=== PATIENT | female | born 1955 | race Caucasian/White ===

== ENCOUNTER → 2017-08-08 | Outpatient (CLI) | payer OTHER ==
[~2017-08-08] MED LIST: ALBU2.5V5 INH; ALBU90OI; ALBU90OI INH; AMIL5; AMIL5 PO; ASCO500 PO; ASPI81CH PO; ASTHMACORT; ATOR40TA PO; CALGLU500; CALMAGZIN PO; CHOL10002 PO; CLAR500 PO; CYCL10 PO; Cefpodoxime Pr200 MG PO; DIVA500ER PO; ERGO400 PO; ESCI10 PO; ESTROGEN/PROGESTERON; Estradiol1 MG PO; FORM12IH INH; GUAI600T33 PO; LITH300C; Lomotil Tablet1 EACH PO; MAG6464 MG PO; MAGOXI400 PO; MIDO2.5; MIDO5 PO; Mucinex600 MG PO; Nicoderm Cq1 EACH TOP; Nicotine Patch1 EAC4 TOP; PRED10 PO; PRED20 PO; PROG100; PROG100 PO; Percocet 5-3251 EACH PO; Perforomis20 MCG/2 M INH; Prednisone10 MG PO; Pulmicort Fle180 MCG INH; QC CALCIUM 6001 EAC1 PO; SALM50IP INH; THEO100ERB; TIOT18 INH; TOCO400 PO; TRIAOI; Thera-M1 EACH PO; Ventolin/Prove6.7 GM INH; [UNRECOGNIZED DRUG - REMARK]; [UNRECOGNIZED DRUG - REMARK]
== END | disposition home or self-care (01) ==
LOC: LAB 15:12
DX: J44.1 Chronic obstructive pulmonary disease with (acute) exacerbation (principal)
CPT/HCPCS: 87070; 87205

== ENCOUNTER 2018-05-18 09:07 | Day surgery (SDC) | payer OTHER ==
[~2018-05-18] VITALS: Ht 157.5 cm; Wt 56.4 kg
[~2018-05-18 09:07] MED LIST changes: -ALBU2.5V5 INH; +ALBU2.5V5 NEB; -ASPI81CH PO; +ASPI81EC PO; -ATOR40TA PO; +BUDE200IP INH; +CHOL10002; -CHOL10002 PO; -Cefpodoxime Pr200 MG PO; -Lomotil Tablet1 EACH PO; +MULVITMIND PO; -Mucinex600 MG PO; -Nicoderm Cq1 EACH TOP; -Perforomis20 MCG/2 M INH; -Pulmicort Fle180 MCG INH; -Thera-M1 EACH PO
== END 2018-05-18 11:25 | disposition home or self-care (01) ==
LOC: ORSCSDS 09:07
PROVIDERS: Surgery
PROC: 0DJD8ZZ Inspection of Lower Intestinal Tract, Via Natural or Artificial Opening Endoscopic (ICD-10-PCS; principal; 2018-05-18 10:30)
DX: Z12.11 Encounter for screening for malignant neoplasm of colon (principal); Z86.010 Personal history of colon polyps; K57.30 Diverticulosis of large intestine without perforation or abscess without bleeding; J44.9 Chronic obstructive pulmonary disease, unspecified; F17.210 Nicotine dependence, cigarettes, uncomplicated; Z79.82 Long term (current) use of aspirin; Z79.899 Other long term (current) drug therapy
CPT/HCPCS: J7120

== ENCOUNTER 2018-11-28 01:57 | Inpatient (IN) | payer OTHER ==
[~2018-11-28] VITALS: Ht 157.5 cm; Wt 61.3 kg
[~2018-11-28 01:57] MED LIST changes: +ALBU2.5V5 INH; -ALBU2.5V5 NEB; -AMIL5 PO; +ASPI81CH PO; -ASPI81EC PO; -BUDE200IP INH; -CHOL10002; +CHOL10002 PO; -MULVITMIND PO; +Pulmicort Fle180 MCG INH; +Thera-M1 EACH PO
[2018-11-28 02:42] LABS: BASOPHILS ABSOLUTE AUTO 0.05 K/mm3 (0.00-0.23); BASOPHILS PERCENT AUTO 1 % (0-2); Hematocrit 42.3 % (33.0-51.0); Hemoglobin 13.8 g/dL (11.5-16.0); LYMPHOCYTES ABSOLUTE AUTO 1.25 K/mm3 (0.84-5.20); LYMPHOCYTES PERCENT AUTO 12 % (21-46); MONOCYTES PERCENT AUTO 14 % (4-13); Mean Corpuscular HGB Conc 32.6 g/dL (31.5-36.5); Mean Corpuscular Volume 98 fL (80-100); Mean Platelet Volume 10.4 fL (9.1-12.4); Platelet Count 218 K/mm3 (150-400); RDW Coefficient Variation 12.2 % (11.7-14.2); RDW Standard Deviation 44.8 fL (35.1-46.3); Red Blood Cell Count 4.31 M/mm3 (3.80-5.20); White Blood Cell Count 10.69 K/mm3 (4.00-11.30)
[2018-11-28 02:43] LABS: EOSINOPHILS PERCENT AUTO 0 % (0-6); IMMATURE GRAN ABSOLUTE AUTO 0.16 K/mm3 (0.00-0.10); IMMATURE GRAN PERCENT AUTO 2 % (0-1); NEUTROPHILS ABSOLUTE AUTO 7.73 K/mm3 (1.96-9.15); NEUTROPHILS PERCENT AUTO 72 % (41-73)
[2018-11-28 03:02] LABS: Albumin/Globulin Ratio 0.6 (0.8-1.8); Bilirubin, Total 0.2 mg/dL (0.1-1.0); Bun/Creatinine Ratio 27.6 (12.0-20.0); Calcium, Blood 9.1 mg/dL (8.5-10.1); Creatinine, Blood 1.34 mg/dL (0.40-1.00); Potassium, Blood 4.6 mmol/L (3.5-5.5); Troponin I 0.219 ng/mL (0.000-0.040)
[2018-11-28 04:17] LABS: Influenza A Negative (NEGATIVE); Influenza B Negative (NEGATIVE)
[2018-11-28] MEDS ORDERED: Perforomis20 MCG/2 M INH (07:15)
[2018-11-28] MEDS ORDERED: Mucinex600 MG PO (07:17)
[2018-11-28] MEDS ORDERED: Lomotil Tablet1 EACH PO (07:20)
--- NOTE | 2018-11-28 07:33 | NUR ---
0610 ADMIT: PT ARRIVES TO ROOM 211 VIA GOURNEY FROM ER ACCOMPANIED BY SON AND TRANSFERS SELF TO BED; PT APPEARS UNSTEADY ON FEET. SOB AT REST ON 3-4L O2 VIA NC TO MAINTAIN SPO2 >90%, PT HAS COARSE UPPER LOBES AND CONGESTED NON-PRODUCTIVE COUGH. PT CHANGED TO PT GOWN AND 1 PERSON ASSISTED TO BSC AND ATTENDS CHANGED FOR STRESS INCONTINENCE. PT A&O AND ABLE TO VERBALIZE MEDICAL HISTORY. RN MAKES COPY OF PT'S MED LIST AND PT STATES SHE TOOK ALL MEDS ON TUESDAY. PT ORIENTED TO BED, BRP, SAFETY AND CALL SYSTEM.
--- NOTE | 2018-11-28 20:15 | NUR ---
SHIFT SUMMARY PT VERY ANXIOUS AND FORGETFUL T/O SHIFT. PT'S COUGH CONTINUED TO BE PRODUCTIVE. INCREASE IN PROD SPUTUM THIS AFTERNOON. LUNG SOUNDS HAVE BECOME MORE COURSE THIS AFTERNOON CHEST CONGESTION APPEARS TO BE WORSE. TACHYCARDIA NOTED T/O HOSPITAL STAY. NEW MED TO START TONIGHT. PT CALLS APPROP TO USE BSC, URINE NOTED TO HAVE FOUL SMELL. INCONTINENT OF URINE. GOOD PO INTAKE OF FLUIDS T/O SHIFT, BUT NOT MUCH APPETITE FOR FOOD SHE IS HAVING INCREASE RESP RATE AND WORK OF BREATHING.
--- NOTE | 2018-11-28 20:50 | NUR ---
2049: NEW ORDERS FOR COPD AND CPT PYSIOTHERAPY PER PROTOCOLS AT RT REQUEST. PT RESPIRATORY RATE 26 WITH EFFORT INCREASED; SITS WITH HOB ELEVATED, PURSED LIPS BREATHING, COARSE T/O. RT TO COMPLETE TREATMENTS.
--- NOTE | 2018-11-29 00:28 | NUR ---
0028: PT UP TO BSC WITH MODERATE ASSIST. PT'S HEAVILY SOILED UNDERWARE FROM HOME REMOVED AND THROWN AWAY. PERICARE WITH HOT, SOAPY WASHCLOTHS COMPLETED AND NEW ATTENDS APPLIED. URINE APPEARS CLOUDY, DARK YELLOW AND FOUL IN ODOR. PT STATES SHE HAS CKD AND IS FOLLOWED BY DR. GLASGOW AND FREQUENTLY VOIDS SMALL AMOUNTS. PT ENCOURAGED TO COUGH DEEPLY AND CLEAR SECRETIONS FROM THROAT.
--- NOTE | 2018-11-29 02:24 | NUR ---
0224: PT CONTINUES TO CALL EVERY 30 MINUTES OR SOONER FOR BEDSIDE COMMODE USE. RN PLACES BEDSIDE COMMODE NEXT TO BED AND PT DEMONSTRATES SAFE, STEADY SELF TRANSFER TO BSC AND BACK. PT VERBALIZES UNDERSTANDING THAT SHE MAY TRANSFER SELF TO BSC WITHOUT STAFF SBA. RN REINFORCES CARE ROUNDING EXPECTATIONS AND APPROPRIATE CALL LIGHT USE WITH PT.
[2018-11-29 04:29] LABS: BASOPHILS ABSOLUTE AUTO 0.06 K/mm3 (0.00-0.23); BASOPHILS PERCENT AUTO 0 % (0-2); EOSINOPHILS PERCENT AUTO 0 % (0-6); Hematocrit 41.3 % (33.0-51.0); Hemoglobin 13.5 g/dL (11.5-16.0); IMMATURE GRAN PERCENT AUTO 1 % (0-1); LYMPHOCYTES ABSOLUTE AUTO 1.34 K/mm3 (0.84-5.20); LYMPHOCYTES PERCENT AUTO 9 % (21-46); MONOCYTES ABSOLUTE AUTO 1.56 K/mm3 (0.16-1.47); MONOCYTES PERCENT AUTO 10 % (4-13); Mean Corpuscular HGB 31.8 pg (26.0-34.0); Mean Corpuscular HGB Conc 32.7 g/dL (31.5-36.5); Mean Corpuscular Volume 97 fL (80-100); Mean Platelet Volume 10.7 fL (9.1-12.4); NEUTROPHILS ABSOLUTE AUTO 12.45 K/mm3 (1.96-9.15); NEUTROPHILS PERCENT AUTO 80 % (41-73); NRBC ABSOLUTE 0.04 K/mm3 (0.00-0.02); NRBC Auto 0.3 /100 WBC (0.0-0.2); Platelet Count 258 K/mm3 (150-400); RDW Coefficient Variation 11.9 % (11.7-14.2); RDW Standard Deviation 42.8 fL (35.1-46.3); Red Blood Cell Count 4.24 M/mm3 (3.80-5.20); White Blood Cell Count 15.61 K/mm3 (4.00-11.30)
[2018-11-29 04:37] LABS: Base Excess Venous 0.4 mmol/L; Bicarbonate Venous 23.1 mmol/L (24.0-30.0); PCO2 Venous 67.5 mmHg (38-42); pH Blood Venous 7.23 (7.34-7.37)
--- NOTE | 2018-11-29 04:47 | NUR ---
RN NOTIFIED.STATED SHE WILLL TAKE OVER TOTAL CARE FOR PATIENT.
[2018-11-29 04:53] LABS: Troponin I 0.495 ng/mL (0.000-0.040)
[2018-11-29 04:57] LABS: Bun/Creatinine Ratio 34.3 (12.0-20.0); Calcium, Blood 9.4 mg/dL (8.5-10.1); Creatinine, Blood 1.37 mg/dL (0.40-1.00); Potassium, Blood 5.1 mmol/L (3.5-5.5)
--- NOTE | 2018-11-29 07:00 | NUR ---
REPORT FROM SUMMER RN. ASSUMED PT CARE.
--- NOTE | 2018-11-29 07:20 | NUR ---
PT APPEARS TO BE SLEEPING. PT RESP RATE APPROX 30. LUNG SOUNDS COARSE.
--- NOTE | 2018-11-29 07:59 | NUR ---
PT AWAKE, ALERT TO SELF. SEEMS CONFUSED TO SURROUNDINGS. PT SPEAKS IN SINGLE WORD SPURTS, LUNG SOUNDS DIMINISHED TO BASES AND COARSE/WET TO UPPER. RESP STAFF TO ROOM FOR CPT AND NEB TX. PT ON 4L O2 PER NC HUMIDIFIED. BSC AT BEDSIDE. BREAKFAST TRAY HELD AT THIS TIME. ASSESSMENT CHARTED.
--- NOTE | 2018-11-29 08:14 | NUR ---
THIS RN SPOKE WITH DR RIDLEY RE CONCERNS FOR PT STATUS. PROVIDER PLANS TO ROUND ON PT PRESENTLY.
--- NOTE | 2018-11-29 08:45 | NUR ---
DR RIDLEY TO ROOM, PLAN FOR STAT EKG, STAT PORTABLE CHEST XRAY, & ADDITIONAL LABS. RESULTS TO BE CALLED TO PROVIDER.
--- NOTE | 2018-11-29 08:55 | NUR ---
ATTEMPT X1 FOR IV ACCESS, UNSUCCESSFUL. RESP STAFF AT BEDSIDE FOR ABG.
[2018-11-29 09:04] LABS: PCO2 Arterial 56.1 mmHg (35-45)
[2018-11-29 09:05] LABS: pH Blood Arterial 7.25 (7.35-7.45)
--- NOTE | 2018-11-29 09:20 | NUR ---
ADDITIONAL ATTEMPTS AT 2ND IV ACCESS, UNSUCCESSFUL. BLOOD OBTAINED AND SENT TO LAB. PT CONFUSED. PUSHING BUTTONS ON PHONE AND REMOTE. REORIENTED MULT TIMES. EXPLAINED TO PT THAT CALLS ARE ON HOLD AT THIS TIME SO PT CAN BREATHE EASIER. AUDIBLE COARSE LUNG SOUNDS. PT CONT SINGLE WORD SENTENCES.
--- NOTE | 2018-11-29 10:00 | NUR ---
PT NEEDEEING TO VOID, TRIES EXCITING BED MULT TIMES. ASSISTED PT TO BSC AND PT VERY WEAK, PT UNABLE TO STAND ON HER OWN, PT BALANCE ALTERED AND SHE LISTS BACKWARDS. ASSISTED BACK TO BED. TOTAL ASSIST.
[2018-11-29 10:05] LABS: Bun/Creatinine Ratio 39.4 (12.0-20.0); Calcium, Blood 9.2 mg/dL (8.5-10.1); Creatinine, Blood 1.27 mg/dL (0.40-1.00)
--- NOTE | 2018-11-29 10:10 | NUR ---
PT MEDICATED WITH LOVENOX AND DEPAKOTE PER EMAR ORDERS. OTHER MEDS HELD DUE TO PT RESP RATE AND SIGNIFICANT SOB. 16FR TOL[place]O PLACED, CLEAR YELLOW URINE RETURNED. SPECIMEN SENT TO LAB. PT CONT TO BE ONE ON ONE.
[2018-11-29 10:21] LABS: Source, Urine Catheter
[2018-11-29 10:40] LABS: Appearance, Urine Clear (Clear); Bilirubin, Urine Neg (Neg); Blood, Urine 1+ (Neg); Color, Urine Yellow (P-Yellow); Glucose Qualitative, Urine Neg (Neg); Ketones, Urine Neg (Neg); Leukocyte Esterase, Urine Neg (Neg); Nitrite, Urine Neg (Neg); Protein, Urine 1+ (Neg); Urobilinogen, Urine NORM (Normal)
--- NOTE | 2018-11-29 10:40 | NUR ---
LAB TO ROOM FOR BLOOD CULTURE DRAW AND ADDITIONAL LABS. PT ANXIOUS, CONT TO ATTEMPT GETTING OUT OF BED DESPITE REORIENTATION AND DIRECTION.
[2018-11-29 10:44] LABS: Amorphous Light (0-Heavy); Bacteria Not Seen /hpf; Red Blood Cells, Urine Rare /hpf (0-2); Squamous Epithelial Cells Not Seen /hpf (Few); White Blood Cells, Urine Not Seen /hpf (0-5)
--- NOTE | 2018-11-29 10:48 | NUR ---
RESP STAFF TO ROOM FOR CPT AND NEB. PT TRIES TO PULL OFF OXYMIZER, PULLING AT TOLEDO.
--- NOTE | 2018-11-29 11:06 | NUR ---
PT MEDICATED WITH .25MG ATIVAN IV, IVF STARTED PER ORDERS. PUPILS 4MM BILATERALLY AND BOTH REACTIVE.
--- NOTE | 2018-11-29 11:08 | NUR ---
PT MORE RESTFUL, O2 DOWN TO 5L PER OXYMIZER. HR 102, SAT 95%
--- NOTE | 2018-11-29 11:15 | NUR ---
REPORT TO PHYSIOTHERAPY PRACTICE MANAGER.
--- NOTE | 2018-11-29 11:20 | NUR ---
PT TO ICU 4.
[2018-11-29 11:26] LABS: International Normalized Ratio 0.93; Prothrombin Time Results 9.9 Sec (9.7-11.5)
--- NOTE | 2018-11-29 11:35 | NUR ---
SPOUSE UPDATED ON PT TX TO ICU.
--- NOTE | 2018-11-29 11:41 | NUR ---
FEMALE PAT ARRIVED IN BED FRON 211. JUST HAD SOME ATIVAN AND VERY RELAXED. ON 5L NC AND THIS WAS CHANGED TO BIPAP 14/6 35%. YOVANY A LITTLE BIT WE WERE APPLYING THE BPAP. LUNGS COURSE AND WET SOUNDING. DR GARCIA HERE AND CONSULT REQUESTED.
[2018-11-29 14:09] LABS: PCO2 Arterial 67.6 mmHg (35-45); PO2 Arterial 130 mmHg (80-100); pH Blood Arterial 7.18 (7.35-7.45)
--- NOTE | 2018-11-29 14:45 | NUR ---
Mrs. Maza is alone in room, on vent, and unresponsive. She appears critically ill. Per admit trigger, I provided prayer at bedside. I will remain available to pt and family.
[2018-11-29 15:42] LABS: Uric Acid, Blood 7.9 mg/dL (2.6-6.0)
[2018-11-29 16:06] LABS: Albumin, Blood 2.1 g/dL (3.4-5.0); Anion Gap 8 mmol/L (6-16); Blood Urea Nitrogen 47 mg/dL (8-24); CO2, Blood 24 mmol/L (21-32); Calcium, Blood 8.4 mg/dL (8.5-10.1); Chloride, Blood 86 mmol/L (98-108); Creatinine, Blood 1.27 mg/dL (0.40-1.00); Glomerular Filtration Rate 45 (60-); Glucose, Blood 101 mg/dL (70-99); Phosphorus, Blood 3.1 mg/dL (2.5-4.9); Potassium, Blood 5.1 mmol/L (3.5-5.5); Sodium, Blood 118 mmol/L (136-145)
[2018-11-29 16:11] LABS: Base Excess Venous -0.2 mmol/L; Bicarbonate Venous 23.7 mmol/L (24.0-30.0); PCO2 Venous 47.4 mmHg (38-42); PO2 Venous 50.2 mmHg (38-42); pH Blood Venous 7.34 (7.34-7.37)
[2018-11-29 16:34] LABS: Osmolality, Serum 265 mos/KG (275-300)
--- NOTE | 2018-11-29 16:36 | NUR ---
PICC LINE INSERTED EARLIER BY Adriana CURRIE RN. LEVOPHED STARTED AT 5MCG/ MIN AND PROPOFOL SLOWLY INCRESED THE BP BECOMES MORE STABLE. CALLED A CONSULT TO DR GLASGOW WHO IS REVIEWING THE LABS. VANCOMYCIN IVPB STARTED. SECRETIONS FROM THE ET ARE LARGE AMTS, THICK AND DARK YELLOW. SPEC WAS SENT TO THE LAB. DR GLASGOW CAME IN TO SEE PAT.AFTER HE LEFT THE [facility] AND SONS ARRIVED. HAD DIFFICULTY SEEING HIS LIKE THIS. PALLIATIVE CARE Paco RASHEED WENT TO TALK WITH HIM IN THE FAMILY LOUNGE.
--- NOTE | 2018-11-29 16:45 | NUR ---
DR GLASGOW CALLED WITH LAB RESULS AND MALINDA SOLIS OBTAINED.
[2018-11-29 17:24] LABS: Influenza A Negative (NEGATIVE); Influenza B Negative (NEGATIVE)
--- NOTE | 2018-11-29 17:38 | NUR ---
pt on vent family at bedside. they had many questions about her care and prognosis. review of ventilator care and medications. family states she wants full treatment. They rpresent history of decline over the past few months. house is not clean and she spends most of her time in bed.
--- NOTE | 2018-11-29 18:29 | NUR ---
PATIENT FINALLY RELAXED AND NOT FIGHTING THE RESTRAINTS. LEVOPHED DRIP AT 7MICS/ MIN, PROPOFOL AT 35MICS/KG/MIN. 3% SALINE AT 30ML/HOUR. SON AT BEDSIDE AND PLANS TO STAY THE NIGHT. LUNGS LESS CORSE. ON VENT TO ORAL E. TV 400, PEEP 5, AC 14, AND FIO2 AT35%. FREQ MOUTH CARE DONE.
--- NOTE | 2018-11-29 20:00 | NUR ---
ASSUMED CARE OF PT AT 1915. REPORT RECEIVED. ALL CRITICAL DRIPS CONFIRMED. PT PRESENTS IN BED. VENTED. SETTINGS CHECKED AND VERIFIED. PT'S FAMILY (SON) IN ROOM. PT ON LEVOPHED DRIP AT 5 MCG'S. PROPOFOL AT 35 MCG'S AND 3 PERCENT SALINE AT 30 ML/HOUR. NA LAB DRAW DONE FROM PICC AND SENT TO LAB FOR PROCESSING. WILL CALL DR GLASGOW WITH RESULTS. WILL REVIEW CHART AND PLAN OF CARE FOR THIS PT.
--- NOTE | 2018-11-30 | NUR ---
PT HAS TOLERATED Q 2 HOUR TURNS IN BED. HAVE SUCTIONED PT WITH RETURN OF YELLOW SECRETIONS. HAVE NEEDED TO INCREASE LEVOPHED FROM 5MCG'S TO 6MCG'S. WILL CONTINUE TO MONITOR FOR ABILITY TO TITRATE DOWN DRIP. PROPOFOL AT 40 MCG'S IS ADEQUATE TO MAINTAIN SAS 4. WILL CONTINUE TO MONITOR.
[2018-11-30 04:24] LABS: BASOPHILS ABSOLUTE AUTO 0.03 K/mm3 (0.00-0.23); BASOPHILS PERCENT AUTO 0 % (0-2); EOSINOPHILS PERCENT AUTO 0 % (0-6); Hematocrit 35.1 % (33.0-51.0); IMMATURE GRAN ABSOLUTE AUTO 0.31 K/mm3 (0.00-0.10); IMMATURE GRAN PERCENT AUTO 2 % (0-1); LYMPHOCYTES ABSOLUTE AUTO 0.53 K/mm3 (0.84-5.20); LYMPHOCYTES PERCENT AUTO 4 % (21-46); MONOCYTES ABSOLUTE AUTO 0.71 K/mm3 (0.16-1.47); MONOCYTES PERCENT AUTO 5 % (4-13); Mean Corpuscular HGB 31.7 pg (26.0-34.0); Mean Corpuscular HGB Conc 34.2 g/dL (31.5-36.5); Mean Platelet Volume 10.5 fL (9.1-12.4); NEUTROPHILS ABSOLUTE AUTO 11.95 K/mm3 (1.96-9.15); NEUTROPHILS PERCENT AUTO 88 % (41-73); Platelet Count 221 K/mm3 (150-400); RDW Coefficient Variation 11.9 % (11.7-14.2); Red Blood Cell Count 3.79 M/mm3 (3.80-5.20); White Blood Cell Count 13.53 K/mm3 (4.00-11.30)
[2018-11-30 04:30] LABS: Mean Corpuscular Volume 93 fL (80-100)
[2018-11-30 04:43] LABS: International Normalized Ratio 0.97; Prothrombin Time Results 10.3 Sec (9.7-11.5)
[2018-11-30 04:50] LABS: Alanine Aminotransfer (ALT/SGP 28 U/L (12-78); Albumin, Blood 2.1 g/dL (3.4-5.0); Albumin/Globulin Ratio 0.5 (0.8-1.8); Alk Phos 50 U/L (50-136); Anion Gap 8 mmol/L (6-16); Aspartate Aminotrans (AST/SGOT 36 U/L (12-37); Bilirubin, Total 0.3 mg/dL (0.1-1.0); Blood Urea Nitrogen 42 mg/dL (8-24); Bun/Creatinine Ratio 31.3 (12.0-20.0); CO2, Blood 25 mmol/L (21-32); Calcium, Blood 9.1 mg/dL (8.5-10.1); Chloride, Blood 99 mmol/L (98-108); Creatinine, Blood 1.34 mg/dL (0.40-1.00); Glomerular Filtration Rate 43 (60-); Glucose, Blood 111 mg/dL (70-99); Magnesium, Blood 2.5 mg/dL (1.6-2.4); Phosphorus, Blood 2.1 mg/dL (2.5-4.9); Sodium, Blood 132 mmol/L (136-145); Total Protein, Blood 6.1 g/dL (6.4-8.2)
[2018-11-30 04:53] LABS: Troponin I 0.338 ng/mL (0.000-0.040)
--- NOTE | 2018-11-30 05:24 | NUR ---
PT GIVEN SEDATION VACATION THIS AM. DOES BECOME VERY ANXIOUS DURING THIS TIME. FLUFFS HER GOWN, AND WHEN ASKED IF SHE WAS TOO WARM SHE NODS HEAD 'YES'. PT ABLE TO FOLLOW COMMANDS AT THIS TIME. PT CURRENTLY BACK TO SEDATION AT 40 MCG/KG. LEVOPHED AT 6 MCG'S. PT'S BLOOD PRESSURE REMAINS >60. HAVE ATTEMPTED TO WEAN DOWN LEVOPHED AND THIS WAS UNSUCCESSFUL. FIO2 HAS BEEN LOWERED TO 30 PERCENT. PT MAINTAINS > 90 PERCENT. SUCTIONING OF PT'S ETT RETURNS YELLOW SECRETIONS. PT TOLERATES THIS FAIR. HAS HAD OUT > 2500 ML CLEAR/YELLOW URINE. PLACED FAN ON BED FOR PT COMFORT. LABS DRAWN THIS AM WITH RETURNED VALUES RECEIVED. WILL CALL DR GLASGOW WITH UPDATES ON LABS. WILL CONTINUE TO MONITOR PT, AND WILL REPORT OFF TO ONCOMING RN.
[2018-11-30 05:37] LABS: PCO2 Arterial 38.7 mmHg (35-45); PO2 Arterial 61.9 mmHg (80-100); pH Blood Arterial 7.45 (7.35-7.45)
--- NOTE | 2018-11-30 07:00 | NUR ---
REC'D BEDSIDE REPORT FROM ROBERT DASILVA AND AM NOW ASSUMING CARE OF PT. PT REMAINS SEDATED ON TITRATED PROPOFOL CURRENTLY AT 40MCG/KG/MIN. PT IS LIGHTLY SEDATED AND IS ABLE TO OPEN EYES AND FOLLOW SOME SIMPLE COMMANDS. PT GRIMACES WITH ORAL/ETT SX'ING. NO S/SX OF PAIN WHEN PT IS AT REST AND CARE ISN'T BEING PROVIDED. LUNGS ARE CLEAR BUT DIMINISHED IN THE BILATERAL BASES. VENT SETTINGS: AC-16/400/5/30%, WITH SATS >90%. OCCASIONAL COUGH WITH SCANT AMT OF THICK WHITISH/YELLOW SPUTUM PER ETT. HR IRREGULAR, SR WITH FREQUENT PAC'S, 80-90'S RANGE. SCD'S IN PLACE BILATERALLY TO LE'S. PICC IN RT UA WITH TITRATED LEVOPHED AT 6MCG/MIN TO MAINTAIN MAP >65. D5W @ 100ML/HR. TOL[place]O CATH DRAINING CLEAR YELLOW URINE. NO BM AT HOME.
--- NOTE | 2018-11-30 08:13 | NUR ---
CHECKED FOR NA LEVEL, NO RESULTS YET. WILL CALL DR GLASGOW WITH RESULTS WHEN AVAILABLE.
[2018-11-30 12:42] LABS: Vancomycin, Trough 8.2 ug/mL (5.0-10.0)
--- NOTE | 2018-11-30 17:06 | NUR ---
PT SWITCHED BACK TO AC MODE RESPIRATORY RATE IS STARTING TO INCREASE THE LONGER SHE HAS BEEN ON SPONTANEOUS.
--- NOTE | 2018-11-30 17:32 | NUR ---
CALLED SODIUM RESULTS TO DR GLASGOW, SEE NEW ORDERS.
--- NOTE | 2018-11-30 19:08 | NUR ---
REPORTED OFF TO ROBERT DASILVA WHOM WILL BE ASSUMING CARE OF PT.
--- NOTE | 2018-11-30 20:00 | NUR ---
ASSUMED CARE OF PT AT 1915. REPORT RECEIVED. PT PRESENTS IN BED. VENTED - SETTINGS CHECKED AND VERIFIED. PT CONTINUES ON PROPOFOL AT 50 MCG'S. LEVOPHED AT 6 MCG'S. PT'S NEICE IN ROOM. WILL REVIEW CHART AND PLAN OF CARE FOR THIS PT.
--- NOTE | 2018-11-30 23:00 | NUR ---
RESIDUAL FROM OGT 150-165. VOLUMES REINSTILLED. PT CONTINUES ON PROPOFOL AND LEVOPHED AT PREVIOUSLY DOCUMENTED RATES. FAMILY HAS LEFT FOR THE NIGHT. PT'S CALLS DURING EVENING TO CHECK ON PT. VERBAL CONSENT GIVEN FOR RELEASE OF INFORMATION AND BLOOD CONSENT. UPDATE GIVEN TO SANDRO - PT'S SPOUSE. HAVE SUCTIONED PT ON OCCASSION FROM ETT WITH RETURN OF SMALL AMOUNTS OF YELLOW SECRETIONS. WILL CONTINUE TO MONITOR.
--- NOTE | 2018-12-01 03:46 | NUR ---
DECREASED LEVOPHED TO 5 MCG'S. OF NOTE: DR GLASGOW WAS CALLED PERTAINING THE TWO LAST SODIUM LEVEL. ORDERS HAVE BEEN RECEIVED. WILL DRAW AM LABS AND NOTIFY DR GLASGOW NEEDED. FULL BED BATH DONE WITH LINEN CHANGE. PT TOLERATES THIS WELL. PT TO HAVE CHEST XRAY THIS AM. AFTER THIS IS COMPLETED, WILL CHANGE PT TO PRESSURE SUPPORT AND SEDATION VACATION TOLERATED. WILL CONTINUE TO MONITOR PT.
[2018-12-01 04:40] LABS: BASOPHILS ABSOLUTE AUTO 0.03 K/mm3 (0.00-0.23); BASOPHILS PERCENT AUTO 0 % (0-2); EOSINOPHILS PERCENT AUTO 0 % (0-6); Hematocrit 32.9 % (33.0-51.0); Hemoglobin 10.9 g/dL (11.5-16.0); IMMATURE GRAN ABSOLUTE AUTO 0.68 K/mm3 (0.00-0.10); IMMATURE GRAN PERCENT AUTO 4 % (0-1); LYMPHOCYTES ABSOLUTE AUTO 0.57 K/mm3 (0.84-5.20); LYMPHOCYTES PERCENT AUTO 4 % (21-46); MONOCYTES ABSOLUTE AUTO 0.92 K/mm3 (0.16-1.47); MONOCYTES PERCENT AUTO 6 % (4-13); Mean Corpuscular HGB 32.1 pg (26.0-34.0); Mean Corpuscular HGB Conc 33.1 g/dL (31.5-36.5); NEUTROPHILS ABSOLUTE AUTO 13.81 K/mm3 (1.96-9.15); NEUTROPHILS PERCENT AUTO 86 % (41-73); Platelet Count 213 K/mm3 (150-400); RDW Coefficient Variation 12.4 % (11.7-14.2); RDW Standard Deviation 44.3 fL (35.1-46.3); White Blood Cell Count 16.01 K/mm3 (4.00-11.30)
[2018-12-01 04:47] LABS: Mean Corpuscular Volume 97 fL (80-100)
[2018-12-01 05:00] LABS: Anion Gap 6 mmol/L (6-16); Blood Urea Nitrogen 35 mg/dL (8-24); Bun/Creatinine Ratio 30.7 (12.0-20.0); CO2, Blood 27 mmol/L (21-32); Calcium, Blood 8.5 mg/dL (8.5-10.1); Chloride, Blood 103 mmol/L (98-108); Creatinine, Blood 1.14 mg/dL (0.40-1.00); Glomerular Filtration Rate 51 (60-); Glucose, Blood 262 mg/dL (70-99); Magnesium, Blood 2.2 mg/dL (1.6-2.4); Phosphorus, Blood 1.8 mg/dL (2.5-4.9); Potassium, Blood 4.4 mmol/L (3.5-5.5); Sodium, Blood 136 mmol/L (136-145)
--- NOTE | 2018-12-01 07:16 | NUR ---
PT CURRENTLY ON PRESSURE SUPPORT AND VERY LOW DOSE SEDATION WITH PROPOFOL AT 20 MCG'S. PT AWAKE AND WILL FOLLOW COMMANDS. HAS BEEN SUCTIONED WITH RETURN OF YELLOW SECRETIONS. LEVOPHED CONTINUES AT [address] GLASGOW ON THE PHONE THIS AM. ORDERS RECEIVED. PT TO START MIDODRINE THREE TIMES PER DAY TO SEE IF LEVOPHED CAN BE STOPPED. REPORT GIVEN TO ONCLINA JONES
--- NOTE | 2018-12-01 07:18 | NUR ---
START OF SHIFT NOTE: RECEIVED REPORT FROM ROBERT DASILVA, ASSUMED CARE, PATIENT IS ON MECHANICAL VENTILATION, SETTINGS ARE PRESSURE SUPPORT, 5/5/400/FiO2 25 %, PATIENT IS AWAKE AND ABLE TO NOD YES AND NO TO QUESTIONS, APPEARS EXTREMELY ANXIOUS AND IS TACHYPNEIC AT THIS TIME, RT AT BEDSIDE, COACHING PATIENT TO DECREASE RESPIRATORY RATE, LUNG SOUNDS ARE CLEAR BUT DIMINISHED, SR/SB, BOWEL TONES PRESENT IN ALL FOUR QUADRANTS, [place] CATHETER IN PLACE, PATIENT HAS PICC IN [facility], PROPOFOL AT 20, LEVOPHED AT 4, PATIENT IS ALSO ON K+PHOS REPLACEMENT, D5W INFUSING AT 150 CC/HR, PEDAL PULSES ARE PALPABLE AND STRONG, CALL LIGHT IN REACH, WILL CONTINUE TO MONITOR.
--- NOTE | 2018-12-01 08:30 | NUR ---
PATIENT WAS FOUND WITH ET TUBE PULLED OUT ABOUT 3 CM, DR. HERNANDEZ AT BEDSIDE, RT AT BEDSIDE, ETT ADVANCED BACK TO INITIAL DEPTH, PATIENT TOLERATED WELL, CALL LIGHT IN REACH, WILL CONTINUE TO MONITOR.
[2018-12-01 13:29] LABS: Vancomycin, Trough 10.6 ug/mL (5.0-10.0)
--- NOTE | 2018-12-01 15:35 | NUR ---
DR. GLASGOW NOTIFIED ABOUT PATIENT'S 1500 SODIUM RESULT = 139, NEW ORDERS RECEIVED.
--- NOTE | 2018-12-01 17:07 | NUR ---
DR. HERNANDEZ IN TO SEE PATIENT, UPDATE PROVIDED, NO NEW ORDERS RECEIVED.
--- NOTE | 2018-12-01 17:54 | NUR ---
SHIFT SUMMARY NOTE: PATIENT CONTINUE TO BE ON MECHANICAL VENTILATION, SETTINGS ARE 16/5/500/FiO2 45 %, PATIENT HAD SBT THIS AM, WAS ON PRESSURE SUPPORT, BUT DID POORLY, RETURNED TO A/C AND DR. HERNANDEZ INCREASED PROPOFOL FROM 20 TO 40 MCG, PATIENT WILL OPEN EYES SPONTANEOUSLY, ABLE TO NOD YES AND NO, ABLE TO FOLLOW SIMPLE COMMANDS, PATIENT ALSO CONTINUES TO BE ON LEVOPHED AT 4 MCG D/T LOW BLOOD PRESSURES, AND HAS D5 INFUSING AT 200 CC/HR PER DR. GLASGOW, NEXT SODIUM LEVEL TO BE DRAWN AT 1999, HAS BEEN CONSISTENTLY 139 TODAY, PATIENT ALSO HAS VANCOMYCIN AND ROCEPHIN INFUSING, TUBE FEE WAS CHANGED TO VITAL HIGH PROTEIN AT 10 CC/HR, WHICH IS GOAL, NO RESIDUALS NOTED, PATIENT IS IN NSR, BOWEL TONES ARE PRESENT AND HYPOACTIVE, [place] CATHETER IN PLACE, PATIENT HAD 2750 CC OF CLEAR YELLOW URINE OUT, RECEIVED ATIVAN ONCE FOR EXTREME ANXIETY, PICC IN [facility] FLUSHES WELL AND HAS GOOD BLOOD RETURN, CALL LIGHT IN REACH, WILL CONTINUE TO MONITOR, FOR DETAILS SEE SHIFT ASSESSMENT DOCUMENTATION AND NURSES NOTES, WILL GIVE REPORT TO ONCOMING DRESS OPERATOR.
--- NOTE | 2018-12-01 19:15 | NUR ---
ASSUMED CARE OF PT, BEDSIDE REPORT RECEIVED. PT IS SEDATED AND INTUBATED WITH 7.5 ETT AT 23 @ GUMS, VENT SETTINGS AC 16, TV 400, FIO2 30%, PEEP 5.0, SATS 96% RESP RATE 18-20 THROUGHOUT ASSESSMENT, TIDAL VOLUMES 390S AT THIS TIME, LUNGS WITH COARSE CRACKLES RIGHT BASE OTHERWISE CLEAR THROUGHOUT. HRR, SINUS ON MONITOR RATE 80S, MAP 75 AT THIS TIME, LEVOPHED GTT AT 4 MCG/MIN VIA RIGHT UPPER ARM PICC LINE, PERIPHERAL PULSES FULL AND EQUAL BILAT, NO EDEMA NOTED AT THIS TIME, ACTIVE BOWEL TONES X 4, VITAL HIGH PROTEIN VIA FEEDING PUMP TO OG TUBE AT 10 ML/HR AT THIS TIME, 30 ML H20 FLUSH EVERY 4 HOURS, PT IS TOLERATING WELL WITH MINIMAL RESIDUALS PER DAY SHIFT RN, ABD SOFT, NO GRIMACING NOTED WITH PALPATION. BILAT PAS STOCKINGS IN PLACE. PICC TO RIGHT UPPER ARM IS NOTED, DRESSING CDI, INFUSING D5 @ 200 ML/HR AND PROPOFOL AT 40 MCG/KG/MIN DECREASED TO 35 MCG/KG/MIN DURING ASSESSMENT PT WAS RESPONSIVE ONLY TO PAIN, DECREASED SEDATION AND OPENING EYES TO VERBAL STIMULI BY COMPLETION OF ASSESSMENT. [place] CATH IN PLACE DRAINING CLEAR PALE YELLOW URINE TO GRAVITY. NIECE AT BEDSIDE, ATTENTIVE, DISCUSSED PLAN OF CARE FOR THIS SHIFT WITH NIECE AT THIS TIME.
--- NOTE | 2018-12-01 21:30 | NUR ---
2000 SODIUM LEVEL RESULTS PHONED TO DR GLASGOW VIA CELL PHONE, NEXT LABS AM AND CALL WITH RESULTS.
--- NOTE | 2018-12-02 00:33 | NUR ---
FIO2 INCREASED TO 35% AT THIS TIME FOR SATS 90-92%, ETT REMAINS AT 23 @ TEETH, LUNGS WITH EXP WHEEZES TO RIGHT, LEFT CLEAR
[2018-12-02 03:43] LABS: Hematocrit 33.2 % (33.0-51.0); Mean Corpuscular HGB 32.6 pg (26.0-34.0); Mean Corpuscular HGB Conc 33.1 g/dL (31.5-36.5); Mean Corpuscular Volume 99 fL (80-100); Mean Platelet Volume 10.4 fL (9.1-12.4); NRBC ABSOLUTE 0.03 K/mm3 (0.00-0.02); NRBC Auto 0.2 /100 WBC (0.0-0.2); Platelet Count 214 K/mm3 (150-400); RDW Standard Deviation 46.6 fL (35.1-46.3); Red Blood Cell Count 3.37 M/mm3 (3.80-5.20); White Blood Cell Count 16.69 K/mm3 (4.00-11.30)
[2018-12-02 03:59] LABS: Anion Gap 5 mmol/L (6-16); Blood Urea Nitrogen 30 mg/dL (8-24); Bun/Creatinine Ratio 30.3 (12.0-20.0); CO2, Blood 30 mmol/L (21-32); Calcium, Blood 8.2 mg/dL (8.5-10.1); Chloride, Blood 103 mmol/L (98-108); Creatinine, Blood 0.99 mg/dL (0.40-1.00); Glomerular Filtration Rate >60 (60-); Glucose, Blood 203 mg/dL (70-99); Magnesium, Blood 1.9 mg/dL (1.6-2.4); Potassium, Blood 4.7 mmol/L (3.5-5.5); Sodium, Blood 138 mmol/L (136-145)
[2018-12-02 04:05] LABS: BAND PERCENT MAN 4 % (0-8); BASOPHILS PERCENT MAN 0 % (0-2); EOSINOPHILS PERCENT MAN 0 % (0-6); LYMPHOCYTES PERCENT MAN 6 % (21-46); MONOCYTES PERCENT MAN 3 % (4-13); MYELOCYTE ABSOLUTE MAN 0.33 K/mm3 (0.00-0.00); MYELOCYTE PERCENT MAN 2 % (0-0); NEUTROPHILS ABSOLUTE MAN 14.85 K/mm3 (1.96-9.15); SEG NEUTROPHILS PERCENT MAN 85 % (41-73); TOTAL CELLS COUNTED 100
[2018-12-02 05:08] LABS: PCO2 Arterial 46.2 mmHg (35-45); PO2 Arterial 71.1 mmHg (80-100); pH Blood Arterial 7.46 (7.35-7.45)
--- NOTE | 2018-12-02 06:11 | NUR ---
PT REMAINS INTUBATED AND SEDATED THIS AM, TOLERATED SEDATION VACATION FOR SPONTANEOUS BREATHING TRIAL WELL, FOLLOWED INSTRUCTIONS WELL, GOOD STRENGTH NOTED BILATERAL UPPER EXTREMITIES. PROPOFOL UP TO 45 MCG/KG/MIN BRIEFLY AFTER COMPLETION OF SPONTANEOUS BREATHING TRIAL BUT TITRATED BACK DOWN TO 35 MCG/KG/MIN FOR HYPOTENSION. LEVOPHED GTT WAS TITRATED UP TO 5 MCG/MIN THIS SHIFT, PT MAINTAINING MAP AT THIS RATE. LUNGS INTERMITTENTLY HAVE EXP WHEEZES NOTED TO RIGHT, LEFT HAS REMAINED CLEAR THROUGHOUT SHIFT. HRR, SINUS TO SINUS TACH AT TIMES THIS SHIFT, OCCASIONAL PACS AND PVCS, EXTREMITIES CONTINUE WITHOUT EDEMA, WARM, PALE, AND DRY. TOLERATING TUBE FEEDS WELL WITH INITIAL RESIDUAL OF 26 ML, LESS THAN 5 ML AT MIDNOC AND 0400, PT IS PASSING FLATUS THIS SHIFT. URINE OUTPUT 3075 ML THIS SHIFT.
--- NOTE | 2018-12-02 07:15 | NUR ---
START OF SHIFT NOTE: PATIENT CONTINUES ON MECHANICAL VENTILATION, SETTINGS AT THIS TIME ARE 16/5/895DfA0 30 %, PROPOFOL AT 30 MCG AND PATIENT SEDATED AT THIS TIME, LEVOPHED AT 5 MCG TO KEEP SBP >100 AND MAP >70, D5 INFUSING AT 200 CC/HR, PATIENT AWAKES TO STIMULI BUT REMAINS DROWSY, ETT 23 CM AT TEETH, LUNGS SOUNDS ARE CLEAR, NSR, HR 70'S TO 80'S, BOWEL TONES ARE PRESENT BUT HYPOACTIVE IN ALL FOUR QUADRANTS, NO ABDOMINAL DISTENTIONS NOTED, NONTENDER TO PALPATION, [place] CATHETER IN PLACE DRAINING CLEAR YELLOW URINE, SCD'S IN PLACE, PATIENT IS ALSO ON LOVENOX CHEMICAL PROPHYLAXIS, RESTRAINTS IN PLACE, PATIENT APPEARS TO BE RESTING COMFORTABLY AT THIS TIME, CALL LIGHT IN REACH, WILL CONTINUE TO MONITOR.
--- NOTE | 2018-12-02 08:53 | NUR ---
DR. HERNANDEZ IN TO SEE PATIENT, POSSIBLE INTUBATION WITHIN THE NEXT HOUR, PATIENT PLACED ON PRESSURE SUPPORT AND PROPOFOL STOPPED, PATIENT IS AWAKE AND ALERT, ABLE TO FOLLOW COMMANDS.
--- NOTE | 2018-12-02 09:13 | NUR ---
PATIENT WAS EXTUBATED AT 0902 WITH SANA MICHELLE RT, AND THIS RN AT BEDSIDE, PATIENT WAS PLACED ON 2L NC AND APPEARS TO BREATH WELL, PATIENT ASKED FOR COFFEE, COCA COLA, AND WATER, WAS INSTRUCTED THAT AT THIS TIME SHE CAN ONLY HAVE MOUTH SWABS UNTIL WE KNOW SHE IS ABLE TO SWALLOW WITHOUT ANY PROBLEM, PATIENT WAS ORIENTED TO CALL LIGHT, AND TIME/DATE, VERBALIZED UNDERSTANDING, CALL LIGHT IN REACH, WILL CONTINUE TO MONITOR.
--- NOTE | 2018-12-02 09:38 | NUR ---
PATIENT IS DOING WELL, WATCHING TV AT THIS TIME, USING SWABS TO MOISTURIZE MOUTH, APPEARS TO HAVE GENERALIZED WEAKNESS, ABLE TO SPEAK, THROAT SLIGHTLY HOARSE, USES CALL BUTTON APPROPRIATELY, CALL LIGHT IN REACH, WILL CONTINUE TO MONITOR.
--- NOTE | 2018-12-02 10:12 | NUR ---
PATIENT WOMENS HEALTH NURSE PRACTITIONER LIGHT, ASKING FOR "COCA COLA", REORIENTED THAT SHE IS STILL NPO AT THIS TIME, PATIENT CONTINUES TO HAVE A WEAK COUGH, HOWEVER, USES FLUTTER VALVE AND INCENTIVE SPIROMETER APPROPRIATELY, RT IN TO CHECK ON PATIENT, CALL LIGHT IN REACH, WILL CONTINUE TO MONITOR.
--- NOTE | 2018-12-02 10:37 | NUR ---
PATIENT'S CALLED, PROVIDED UPDATE VIA PHONE, WILL CALL AGAIN.
--- NOTE | 2018-12-02 12:49 | NUR ---
BEDSIDE SWALLOW EVALUATION BY RN SHOWED THAT PATIENT IS ABLE TO SWALLOW ICE CHIPS AND SIPS OF WATER WITHOUT ANY PROBLEMS, ALSO ABLE TO SWALLOW HER PILLS WITHOUT ANY PROBLEMS, DR. RIDLEY IN TO SEE PATIENT, NO NEW ORDERS RECEIVED.
--- NOTE | 2018-12-02 13:08 | NUR ---
SODIUM RESULT OF [address] GLASGOW, NO NEW ORDERS RECEIVED.
--- NOTE | 2018-12-02 17:45 | NUR ---
SHIFT SUMMARY NOTE: PATIENT IS RESTING COMFORTABLY, WATCHING TV, EXTUBATED AT 0902 THIS AM, PATIENT CANNOT REMEMBER BEING INTUBATED, EVEN THOUGH SHE WAS WIDE AWAKE AND ALERT WHEN EXTUBATED, SHE IS ALERT AND ORIENTED TO SELF, PLACE, AND FAMILY, BUT HAS PROBLEM IDENTIFYING DAY AND TIME, VERY PLEASANTLY CONFUSED, USES THE CALL LIGHT APPROPRIATELY AND ASKS APPROPRIATE QUESTIONS ABOUT HER CONDITION, MEDICATION, AND PLAN OF CARE, LUNG SOUNDS ARE CLEAR BUT DIMINISHED, PATIENT USES IS AND FLUTTER VALVE HOURLY AND HAS A GOOD COUGH, AT TIMES PRODUCTIVE, THIN CLEAR SECRETIONS, CURRENTLY ON 2L NC WITH O2 SATURATION IN MID TO UPPER 90'S, SHE IS IN NSR WITH HR IN 80'S, BLOOD PRESSURES CONTINUE TO BE ON THE LOW SIDE AND LEVOPHED IS STILL INFUSING AT 5 MCG, NO BM DURING THIS SHIFT, BOWEL TONES PRESENT AND HYPOACTIVE, PATIENT HAS DIET ADA ORDERED PER DR. RIDLEY, NO PROBLEM SWALLOWING, TAKES PILLS WITH SIPS OF WATER, [place] CATHETER IN PLACE AND DRAINING LARGE AMOUNTS OF CLEAR YELLOW URINE, DURING DAY SHIFT PATIENT HAD 3300 CC'S OUTPUT, SODIUM STABILIZED AT 140, CONTINUES TO RECEIVE D5 INFUSING AT 200 CC/HR, FAMILY AT BEDSIDE VISITING THROUGHOUT DAY, PATIENT ABLE TO HAVE PLEASANT CONVERSATIONS, CALLED HER FREQUENTLY, RESTING AT THIS TIME, CALL LIGHT IN REACH, WILL CONTINUE TO MONITOR AND GIVE REPORT TO ONCOMING ALIGNING INSPECTOR. FOR DETAILS SEE SHIFT ASSESSMENT DOCUMENTATION AND NURSES NOTES.
--- NOTE | 2018-12-02 19:10 | NUR ---
ASSUMED CARE OF PT, BEDSIDE REPORT RECEIVED. LEVOPHED CONTINUES AT 5 MCG/MIN VIA PICC TO RIGHT UPPER ARM, DRESSING CDI. PT IS SPEAKING IN FULL SENTANCES WITH SOFT VOICE QUALITY. SHE IS ON 2 L/MIN OXYGEN VIA NC, RESP RATE MID 20S, LUNGS ARE CLEAR BUT DIM THROUGHOUT, INTERMITTENT CONGESTED COUGH, PT DOES REPORT IT IS PRODUCTIVE BUT UNABLE TO STATE SPUTUM COLOR AT THIS TIME, SPUTUM WAS THIN AND YELLOW PRIOR TO EXTUBATION. SINUS TACH ON MONITOR, OCCASIONAL PACS AND PVCS, MAP MAINTAINING WITH LEVOPHED, MIDODRINE ADMIN X 3 TODAY, WILL MONITOR AND TITRATE ABLE. HYPOACTIVE BOWEL TONES, PT DENIES NAUSEA, IS PASSING FLATUS AND SMALL AMOUNT OF STOOL AT THIS TIME. [place] REMAINS IN PLACE DRAINING CLEAR PALE YELLOW URINE TO GRAVITY. PT DENIES PAIN, STATES THAT BREATHING IS FEELING "OKAY" AT THIS TIME. SPEAKING ON PHONE WITH FAMILY.
[2018-12-03 03:39] LABS: Hematocrit 35.3 % (33.0-51.0); Hemoglobin 11.5 g/dL (11.5-16.0); Mean Corpuscular HGB 32.1 pg (26.0-34.0); Mean Corpuscular HGB Conc 32.6 g/dL (31.5-36.5); Mean Corpuscular Volume 99 fL (80-100); Mean Platelet Volume 9.8 fL (9.1-12.4); NRBC ABSOLUTE 0.05 K/mm3 (0.00-0.02); NRBC Auto 0.3 /100 WBC (0.0-0.2); Platelet Count 235 K/mm3 (150-400); RDW Standard Deviation 46.7 fL (35.1-46.3); Red Blood Cell Count 3.58 M/mm3 (3.80-5.20); White Blood Cell Count 14.85 K/mm3 (4.00-11.30)
[2018-12-03 03:54] LABS: Albumin, Blood 2.1 g/dL (3.4-5.0); Anion Gap 5 mmol/L (6-16); Blood Urea Nitrogen 25 mg/dL (8-24); Bun/Creatinine Ratio 26.2 (12.0-20.0); CO2, Blood 32 mmol/L (21-32); Calcium, Blood 8.1 mg/dL (8.5-10.1); Chloride, Blood 100 mmol/L (98-108); Creatinine, Blood 0.95 mg/dL (0.40-1.00); Glomerular Filtration Rate >60 (60-); Glucose, Blood 231 mg/dL (70-99); Magnesium, Blood 1.8 mg/dL (1.6-2.4); Phosphorus, Blood 2.4 mg/dL (2.5-4.9); Potassium, Blood 4.3 mmol/L (3.5-5.5); Sodium, Blood 137 mmol/L (136-145)
[2018-12-03 04:15] LABS: BASOPHILS PERCENT MAN 0 % (0-2); EOSINOPHILS PERCENT MAN 0 % (0-6); LYMPHOCYTES ABSOLUTE MAN 0.89 K/mm3 (0.84-5.20); LYMPHOCYTES PERCENT MAN 6 % (21-46); METAMYELOCYTE ABSOLUTE MAN 0.44 K/mm3 (0.00-0.00); METAMYELOCYTE PERCENT MAN 3 % (0-0); MONOCYTES ABSOLUTE MAN 1.03 K/mm3 (0.16-1.47); MONOCYTES PERCENT MAN 7 % (4-13); MYELOCYTE ABSOLUTE MAN 0.44 K/mm3 (0.00-0.00); MYELOCYTE PERCENT MAN 3 % (0-0); NEUTROPHILS ABSOLUTE MAN 12.02 K/mm3 (1.96-9.15); SEG NEUTROPHILS PERCENT MAN 81 % (41-73); TOTAL CELLS COUNTED 100
--- NOTE | 2018-12-03 06:16 | NUR ---
PT SPEAKING IN FULL SENTANCES THROUGHOUT SHIFT, REMAINS ON 2L OXYGEN VIA NC, INCREASED RESPIRATORY RATE IS NOTED WITH REPOSITIONING SELF IN BED, COUGH CONTINUES, PT HAS BEEN USING INCENTIVE SPIROMETER AND FLUTTER VALVE WELL THIS SHIFT, LUNGS ARE CLEAR WITH DIM BASES THIS AM, HRR, SINUS TO SINUS TACH AT TIMES, BP MAINTAINING WITH LEVOPHED TITRATED DOWN TO 1 MCG/MIN WILL ATTEMPT TO PLACE LEVOPHED ON STANDBY PRIOR TO SHIFT CHANGE. PT IS TOLERATING PO INTAKE WELL.
--- NOTE | 2018-12-03 07:39 | NUR ---
START OF SHIFT NOTE: RECEIVED REPORT FROM ROBERT HERNADEZ, ASSUMED CARE, PATIENT IS AWAKE, RECEIVING BREATHING TREATMENT AT THIS TIME, ANNIE RT AT BEDSIDE, PATIENT IS ALERT TO PLACE, SELF, FAMILY, BUT VAGUE ON TIME/DATE, DENIES PAIN OR SOB, REPORTS NO N/V/D, LUNG SOUNDS CLEAR THROUGHOUT, NSR, BT'S HYPOACTIVE, TOLEDO CATHETER IN PLACE, SCD'S ON, CALL LIGHT IN REACH, WILL CONTINUE TO MONITOR.
--- NOTE | 2018-12-03 08:50 | NUR ---
DR. GLASGOW IN TO SEE PATIENT, NEW ORDERS RECEIVED.
--- NOTE | 2018-12-03 09:38 | NUR ---
DR. HERNANDEZ IN TO SEE PATIENT, NEW ORDERS RECEIVED.
--- NOTE | 2018-12-03 11:00 | NUR ---
PT HAS HAD 3 BM WITH VERY MINIMAL AMOUNT OF STOOL, LIQUIDY AND SOFT. DR. RIDLEY WAS NOTIFIED AND INQUIRED REGARDING TO CHECK FOR C-DIFF, HE STATED, SINCE PT IS NOT COMPLAINING OF ABDOMINAL PAIN AND PT'S TUBE FEEDING WAS DISCONTINUED YESTERDAY, TO CONTINUE TO MONITOR PATIENT.
--- NOTE | 2018-12-03 12:57 | NUR ---
DR. RIDLEY NOTIFIED AND MADE AWARE ABOUT PATIENT'S MULTIPLE LOOSE STOOLS, DR. RIDLEY INSTRUCTED NURSING STAFF "TO NOT SEND A STOOL SAMPLE FOR C-DIFF YET".
--- NOTE | 2018-12-03 15:19 | NUR ---
REPORT CALLED TO ROBERT RUSH, WILL TRANSFER PATIENT TO ROOM 306 VIA W/C.
--- NOTE | 2018-12-03 15:56 | NUR ---
PATIENT WAS TRANSFERRED TO ROOM 306 VIA W/C AND 2L NC, ABLE TO AMBULATE TO BED WITH ONE ASSIST, PATIENT WAS PLACED IN MEDICAL BED AND BELONGINGS WERE STORED, ROBERT RUSH, AT BEDSIDE, REPORT HAD BEEN CALLED PRIOR TO PATIENT TRANSFER.
[2018-12-04 04:55] LABS: Hematocrit 36.4 % (33.0-51.0); Hemoglobin 11.9 g/dL (11.5-16.0)
--- NOTE | 2018-12-04 04:59 | NUR ---
SHIFT SUMMARY: PT IS ALERT AND ORIENTED. PT IS CALM AND COOPERATIVE WITH CARE. PT CALLS APPROPRIATELY. PT IS A ONE PERSON ASSIST TO THE BSC. PT DENIES PAIN, NAUSEA, AND VOMITING. PT REPORTS SOB UPON EXERTION AND WITH COUGH, BREATHING TREATMENTS NEEDED. PT SLEPT VERY LITTLE OVERNIGHT. TOLEDO PATENT AND DRAINING YELLOW URINE. NO ACUTE CHANGES OR COMPLICATIONS THIS SHIFT. BED IN LOW POSITION, CALL LIGHT WITHIN REACH. WILL REPORT TO DAY NURSE.
[2018-12-04 05:20] LABS: Albumin, Blood 2.2 g/dL (3.4-5.0); Anion Gap 4 mmol/L (6-16); Blood Urea Nitrogen 27 mg/dL (8-24); Bun/Creatinine Ratio 27.3 (12.0-20.0); CO2, Blood 32 mmol/L (21-32); Calcium, Blood 8.4 mg/dL (8.5-10.1); Chloride, Blood 103 mmol/L (98-108); Creatinine, Blood 0.99 mg/dL (0.40-1.00); Glomerular Filtration Rate >60 (60-); Glucose, Blood 118 mg/dL (70-99); Magnesium, Blood 2.1 mg/dL (1.6-2.4); Potassium, Blood 4.4 mmol/L (3.5-5.5); Sodium, Blood 139 mmol/L (136-145)
--- NOTE | 2018-12-04 18:12 | NUR ---
PATIENTIS COMPLIANT WITH ALL CARES AND FRIENDLY WITH STAFF. SHE CONTINUES TO BE FORGETTFULL AND HAVE FLIGHTS OF FANCY. SHE IS ORIENTED TO SELF AND PLACE. SHE HAS HAD HEAVY OUTPUT THIS SHIFT. NO COMPLAINTS OF PAIN, SOB, OR NV.
--- NOTE | 2018-12-05 01:31 | NUR ---
12/05/18 0130 HEART MONITOR PRESENTLY "SR AT 89 WITH OCC. PVC." PER PCU KNITTING MACHINE FIXER.
--- NOTE | 2018-12-05 03:45 | NUR ---
12/05/18 0345 Awake and unable to sleep. States she stopped smoking and is now "a night owl". Encouraged to try and sleep during night while in the hospital." Lights off and states she will try. Heart rate down this AM per emergency department technician.
[2018-12-05 04:53] LABS: Hematocrit 38.5 % (33.0-51.0); Hemoglobin 12.5 g/dL (11.5-16.0)
[2018-12-05 05:47] LABS: Albumin, Blood 2.2 g/dL (3.4-5.0); Anion Gap 4 mmol/L (6-16); Blood Urea Nitrogen 31 mg/dL (8-24); Bun/Creatinine Ratio 27.4 (12.0-20.0); CO2, Blood 33 mmol/L (21-32); Calcium, Blood 8.3 mg/dL (8.5-10.1); Chloride, Blood 106 mmol/L (98-108); Creatinine, Blood 1.13 mg/dL (0.40-1.00); Glomerular Filtration Rate 52 (60-); Glucose, Blood 71 mg/dL (70-99); Magnesium, Blood 2.1 mg/dL (1.6-2.4); Phosphorus, Blood 3.9 mg/dL (2.5-4.9); Potassium, Blood 4.4 mmol/L (3.5-5.5); Sodium, Blood 143 mmol/L (136-145)
--- NOTE | 2018-12-05 15:39 | NUR ---
1530 PARIS MENDEZ. PATIENT TOLERATED WELL. SHE WAS INSTRUCTED TO USE CALL LIGHT AND NOTIFIY NURSE WHEN SHE FELT LIKE SHE HAD TO GO TO THE RESTROOM. CALL LIGHT WITHIN REACH, BSC BY SIDE OF BED.
--- NOTE | 2018-12-05 17:29 | NUR ---
PATIENT CONTINUES TO HAVE MOMENTS OF CONFUSION . SHE IS EAGER TO GET HOME AND KEEPS FORGETTING THAT SHE IS NOT GOING HOME TODAY. SHE CONTINUES TO GET D5 FLUIDS AND HER BG IS WNL. [place] WAS PULLED THIS SHIFT. AWAITING PATIENT TO VOID.
[2018-12-06 04:58] LABS: Hematocrit 36.7 % (33.0-51.0); Hemoglobin 11.9 g/dL (11.5-16.0)
[2018-12-06 05:15] LABS: Albumin, Blood 2.4 g/dL (3.4-5.0); Anion Gap 4 mmol/L (6-16); Blood Urea Nitrogen 33 mg/dL (8-24); Bun/Creatinine Ratio 30.8 (12.0-20.0); CO2, Blood 33 mmol/L (21-32); Calcium, Blood 8.7 mg/dL (8.5-10.1); Chloride, Blood 102 mmol/L (98-108); Creatinine, Blood 1.07 mg/dL (0.40-1.00); Glomerular Filtration Rate 55 (60-); Glucose, Blood 72 mg/dL (70-99); Magnesium, Blood 1.9 mg/dL (1.6-2.4); Phosphorus, Blood 3.4 mg/dL (2.5-4.9); Potassium, Blood 4.1 mmol/L (3.5-5.5); Sodium, Blood 139 mmol/L (136-145)
--- NOTE | 2018-12-06 06:05 | NUR ---
Shift summary. Pt did well overnight but did not sleep a whole lot. No c/o discomfort. Pt wanted to go out and smoke but was talked out of it. Blood drawn from picc line without issue and sent to lab. Voiding without issues since getting out fontanez yesterday. VSS. On Tele- has been in sinus rhythm most of night. Pt wearing 2 liters O2 and maintaining sats > 90 %.
--- NOTE | 2018-12-06 07:09 | NUR ---
CONSENT TO TREAT PT GAVE STUDENT CONSENT TO CARE FOR HER FOR 12/06/18 ON 12/06/18 AT 0700.
[2018-12-06] MEDS ORDERED: ATOR40TA PO (09:00)
[2018-12-06] MEDS ORDERED: Nicoderm Cq1 EACH TOP (09:01)
[2018-12-06] MEDS ORDERED: PRED10 PO (09:03)
[2018-12-06] MEDS ORDERED: Cefpodoxime Pr200 MG PO (09:04)
--- NOTE | 2018-12-06 16:33 | NUR ---
THE PLAN THIS MORNING WAS TO SEND THE PATIENT HOME TODAY UNTIL DR. MENDOZA DECIDED SHE WAS TOO TACHYCARDIC TO BE DISCHARGED. DR. GLASGOW HAS BEEN NOTIFIED AND HAS ORDERED MAINTENANCE FLUIDS AND AN INCREASED DOSE OF PRO-ATAMINE. PT HAS NO COMPLAINTS OF PAIN OR SOB. WILL CONTINUE TO MONITOR.
[2018-12-07 04:41] LABS: BASOPHILS ABSOLUTE AUTO 0.02 K/mm3 (0.00-0.23); BASOPHILS PERCENT AUTO 0 % (0-2); EOSINOPHILS ABSOLUTE AUTO 0.02 K/mm3 (0.00-0.68); EOSINOPHILS PERCENT AUTO 0 % (0-6); Hematocrit 37.9 % (33.0-51.0); Hemoglobin 11.9 g/dL (11.5-16.0); IMMATURE GRAN ABSOLUTE AUTO 0.06 K/mm3 (0.00-0.10); IMMATURE GRAN PERCENT AUTO 1 % (0-1); LYMPHOCYTES ABSOLUTE AUTO 2.93 K/mm3 (0.84-5.20); LYMPHOCYTES PERCENT AUTO 26 % (21-46); MONOCYTES ABSOLUTE AUTO 0.75 K/mm3 (0.16-1.47); MONOCYTES PERCENT AUTO 7 % (4-13); Mean Corpuscular HGB Conc 31.4 g/dL (31.5-36.5); Mean Platelet Volume 9.9 fL (9.1-12.4); NEUTROPHILS ABSOLUTE AUTO 7.38 K/mm3 (1.96-9.15); NEUTROPHILS PERCENT AUTO 66 % (41-73); Platelet Count 206 K/mm3 (150-400); Red Blood Cell Count 3.72 M/mm3 (3.80-5.20); White Blood Cell Count 11.16 K/mm3 (4.00-11.30)
[2018-12-07 04:43] LABS: Mean Corpuscular Volume 102 fL (80-100)
[2018-12-07 04:58] LABS: Albumin, Blood 2.8 g/dL (3.4-5.0); Anion Gap 3 mmol/L (6-16); Blood Urea Nitrogen 36 mg/dL (8-24); Bun/Creatinine Ratio 32.1 (12.0-20.0); CO2, Blood 35 mmol/L (21-32); Calcium, Blood 9.1 mg/dL (8.5-10.1); Chloride, Blood 100 mmol/L (98-108); Creatinine, Blood 1.12 mg/dL (0.40-1.00); Glomerular Filtration Rate 52 (60-); Glucose, Blood 61 mg/dL (70-99); Magnesium, Blood 2.3 mg/dL (1.6-2.4); Phosphorus, Blood 4.5 mg/dL (2.5-4.9); Potassium, Blood 4.4 mmol/L (3.5-5.5); Sodium, Blood 138 mmol/L (136-145)
--- NOTE | 2018-12-07 06:34 | NUR ---
SHIFT SUMMARY PT AWAKE ON/OFF T/O NIGHT. AOX4. DENIES N/V. REPORTED HEADACHE & WAS MEDICATED 1X W/TYLENOL PER ORDERS. REPORTS SOB, BREATHING TX GIVEN PER ORDERS, LUNGS SOUND DIMINISHED T/O & SPO2 >90% ON 2L NC. PER TELE MONITOR PT IS NSR W/HR 99. IV INFILTRATED THIS AM & WAS REMOVED, WILL NOTIFY ONCOMING RN. PT INDEPENDANT IN ROOM & CALL LIGHT IS IN REACH.
[2018-12-07] MEDS ORDERED: AMIL5 PO (12:13)
--- NOTE | 2018-12-07 13:06 | NUR ---
Pt visit this afternoon. Pt reports feeling better today. She explains there was some concern regarding her increased heart rate. She feels this is due to drinking coffee. Pt reports that when she drinks coffee at home the coffee is much weaker than the coffee here at the hospital. Pt discusses her plan when she is discharged from the hospital. She reports she will receive extra support through home health. Pt states that she has quit smoking and at this point she reports no concerns with smoking cessation. Discussed with Pt an option for the high risk readmission program for her COPD. Pt expresses interest. Pt reports that she also struggles with making it to some appointments if they are scheduled at the end of the month due to fiances. Pt reports that she is on a limited income. Suggested to Pt when making appointments to ensure they are scheduled at the beginning of the month. Also suggested to Pt to check into [employer] programs for assistance with transportation. Pt V/U understanding and reports no other concerns. Contacted Ja in pulmonary education regarding Pt's interest in the high risk readmission program. Ja reports he will make a Pt visit. Will remain available.
--- NOTE | 2018-12-07 16:15 | NUR ---
DISCHARGE DISCHARGE MEDICATIONS AND INSTRUCTIONS EXPLAINED TO PATIENT. PATIENT STATED UNDERSTANDING. NO IV PRESENT. BELONGINGS WITH PATIENT. PATIENT TRANSFERED TO [facility] VIA WHEELCHAIR. PATIENT REQUESTED TO NOT HAVE HER FOLLOWUP APPOINTMENT WITH HER PCP SCHEDULED TODAY AND STATED SHE PREFERS TO SCHEDULE IT HERSELF.
== END 2018-12-07 16:01 | disposition home or self-care (01) | DRG 870 ==
LOC: DELPENDDIS → ER 01:57 → ICUE 04:42 → SURS 04:42 → ICUE 05:30 → MEDS 12-03 15:36 → ENPENDDIS 12-05 12:00 → MEDS 12-06 22:04 → ENPENDDIS 12-07 11:55 → MEDS 12-07 16:01
PROVIDERS: Emergency Medicine; Internal Medicine; Internal Medicine Critical Care Medicine; Internal Medicine Nephrology; Internal Medicine Pulmonary Disease; ADMIT Hospitalist
PROC: 0BH17EZ Insertion of Endotracheal Airway into Trachea, Via Natural or Artificial Opening (ICD-10-PCS; principal; 2018-11-28)
PROC: 5A1955Z Respiratory Ventilation, Greater than 96 Consecutive Hours (ICD-10-PCS; 2018-11-28)
PROC: 02HV33Z Insertion of Infusion Device into Superior Vena Cava, Percutaneous Approach (ICD-10-PCS; 2018-11-29)
PROC: 0DH67UZ Insertion of Feeding Device into Stomach, Via Natural or Artificial Opening (ICD-10-PCS; 2018-11-29)
PROC: 3E0G76Z Introduction of Nutritional Substance into Upper GI, Via Natural or Artificial Opening (ICD-10-PCS; 2018-11-29)
DX: A41.9 Sepsis, unspecified organism (principal); J13 Pneumonia due to Streptococcus pneumoniae; E43 Unspecified severe protein-calorie malnutrition; J96.21 Acute and chronic respiratory failure with hypoxia; J96.22 Acute and chronic respiratory failure with hypercapnia; G93.41 Metabolic encephalopathy; I21.A1 Myocardial infarction type 2; J44.1 Chronic obstructive pulmonary disease with (acute) exacerbation; N17.9 Acute kidney failure, unspecified; E23.2 Diabetes insipidus; E87.1 Hypo-osmolality and hyponatremia; E87.2 Acidosis; R65.20 Severe sepsis without septic shock; Z99.81 Dependence on supplemental oxygen; E86.0 Dehydration; F31.9 Bipolar disorder, unspecified; E87.5 Hyperkalemia; I25.10 Atherosclerotic heart disease of native coronary artery without angina pectoris; F20.9 Schizophrenia, unspecified; F17.210 Nicotine dependence, cigarettes, uncomplicated; I12.9 Hypertensive chronic kidney disease with stage 1 through stage 4 chronic kidney disease, or unspecified chronic kidney disease; E11.22 Type 2 diabetes mellitus with diabetic chronic kidney disease; N18.3 Chronic kidney disease, stage 3 (moderate); B96.3 Hemophilus influenzae [H. influenzae] as the cause of diseases classified elsewhere; E83.39 Other disorders of phosphorus metabolism; D63.1 Anemia in chronic kidney disease; E86.9 Volume depletion, unspecified
CPT/HCPCS: 31500; 31720; 36415; 36569; 36600; 51702; 71045; 71046; 76770; 80048; 80053; 80069; 80202; 81001; 82533; 82803; 82947; 83605; 83735; 83880; 83930; 84100; 84132; 84145; 84295; 84443; 84484; 84550; 85014; 85018; 85025; 85610; 85730; 87040; 87070; 87077; 87185; 87186; 87205; 87804; 93005; 93010; 93306; 94002; 94003; 94640; 94644; 94660; 94664; 94667; 94668; 94760; 94761; 96361; 96374; 97110; 97162; 97165; 97530; 98960; 99285-25; A9270-GY; C1751; C9113; J0696; J1650; J1956; J2060; J2920; J2930; J3010; J3370; J7030; J7060; J7070; J7512

== ENCOUNTER → 2018-12-18 | Outpatient (CLI) | payer OTHER ==
[~2018-12-18] MED LIST changes: +AMIL5 PO; +ATOR40TA PO; +Cefpodoxime Pr200 MG PO; +Lomotil Tablet1 EACH PO; +Mucinex600 MG PO; +Nicoderm Cq1 EACH TOP; +Perforomis20 MCG/2 M INH
[2018-12-18 18:35] LABS: Microalbumin, Urine Quant. <5.000 mg/L (0.000-20.000); Protein, Urine Quantitative <5.0 mg/dL (0.0-11.9)
== END | disposition home or self-care (01) ==
LOC: LAB SHORT 15:05 → LAB 15:05 → LAB FUT 12-14 13:55
PROVIDERS: Internal Medicine Nephrology
DX: N18.3 Chronic kidney disease, stage 3 (moderate) (principal); D63.1 Anemia in chronic kidney disease; N25.81 Secondary hyperparathyroidism of renal origin; E55.9 Vitamin D deficiency, unspecified; E78.00 Pure hypercholesterolemia, unspecified; R76.9 Abnormal immunological finding in serum, unspecified; R94.5 Abnormal results of liver function studies; R94.6 Abnormal results of thyroid function studies; G60.9 Hereditary and idiopathic neuropathy, unspecified; D51.8 Other vitamin B12 deficiency anemias; D50.9 Iron deficiency anemia, unspecified
CPT/HCPCS: 81050; 82043; 82570; 84156

== ENCOUNTER → 2018-12-28 | Outpatient (CLI) | payer OTHER ==
[2019-01-01 14:06] LABS: HPV 16 Negative (Negative); HPV 18 Negative (Negative); HPV OTHER HR TYPES Negative (Negative)
[2019-01-01 15:27] LABS: TEST METHODOLOGY: Commen
== END | disposition home or self-care (01) ==
LOC: LAB SHORT 15:48 → LAB 15:48
PROVIDERS: Obstetrics & Gynecology
DX: Z01.419 Encounter for gynecological examination (general) (routine) without abnormal findings (principal)
CPT/HCPCS: 87624; G0123

== ENCOUNTER → 2019-06-05 | Outpatient (CLI) | payer OTHER | END | disposition home or self-care (01) | LOC: LAB SHORT 14:20 → LAB 14:20 | DX: R05 Cough (principal) | CPT/HCPCS: 87070; 87077; 87186; 87205 ==

== ENCOUNTER → 2023-06-10 | Outpatient (CLI) | payer OTHER | END | disposition home or self-care (01) | LOC: LAB 09:30 → LAB SHORT 09:30 → LAB FUT 05-09 15:10 | DX: A31.0 Pulmonary mycobacterial infection (principal) | CPT/HCPCS: 87070; 87205 ==

== ENCOUNTER → 2023-10-19 | Outpatient (CLI) | payer OTHER | LOC: LAB 14:44 → LAB SHORT 14:44 | DX: D04.61 Carcinoma in situ of skin of right upper limb, including shoulder (principal); L57.0 Actinic keratosis | CPT/HCPCS: 88305 ==

== ENCOUNTER 2024-02-24 10:27 | Day surgery (SDC) | payer OTHER ==
[~2024-02-24] VITALS: Ht 157.5 cm; Wt 40.6 kg
[~2024-02-24 10:27] MED LIST changes: +Lactated Ringer's 1,000 ML IV SCH
[2024-02-24 10:45] VITALS: BP 113/59
[2024-02-24] MEDS ORDERED: PARO10 PO (11:14)
[2024-02-24] MEDS ORDERED: ALBU2.5V5 INH (11:18)
[2024-02-24] MEDS ORDERED: Serevent Disku50 MCG INH (11:21)
[2024-02-24] MEDS ORDERED: RIFA150 PO (11:24)
[2024-02-24] MEDS ORDERED: Crestor40 MG PO (11:26)
[2024-02-24] MEDS ORDERED: AMIL5 PO (11:27)
[2024-02-24] MEDS ORDERED: AZIT500 PO (11:27)
[2024-02-24] MEDS ORDERED: DIVA250ER PO (11:29)
[2024-02-24] MEDS ORDERED: ETHA400 PO (11:30)
[2024-02-24 11:45] VITALS: BP 123/57
[2024-02-24] MEDS ORDERED: propofoL 40 ML IV ONE (12:47)
--- NOTE | 2024-02-24 12:54 | NUR ---
02/24/24 1254 Darrius Pereira MONITOR INTACT WITH CONTINUOUS PULSE OXIMETRY, CONTINUOUS END TITAL CO2, AND INTERMITTENT BLOOD PRESSURE. AND EKG ANESTHESIA PER Vanessa GRANT LOG SORTER
[2024-02-24 13:14] VITALS: BP 88/61
[2024-02-24 13:18] VITALS: BP 95/57
[2024-02-24 13:20] VITALS: BP 98/53
[2024-02-24 13:31] VITALS: BP 123/68
--- NOTE | 2024-02-24 13:54 | NUR ---
Patient up to Ambulate independently. Gait steady. Up to bathroom. Discharge instructions reviewed with patient. Patient verbalizes understanding. Copy given to patient to take home. Patient States Post-Procedure ride home has been arranged.
--- NOTE | 2024-02-24 14:05 | NUR ---
Discharged via wheelchair to private car for ride home.
== END 2024-02-24 22:52 | disposition home or self-care (01) ==
LOC: ORSCMMR 10:27
PROVIDERS: Surgery
PROC: 0DJD8ZZ Inspection of Lower Intestinal Tract, Via Natural or Artificial Opening Endoscopic (ICD-10-PCS; principal; 2024-02-24 11:45)
DX: Z12.11 Encounter for screening for malignant neoplasm of colon (principal); Z86.010 Personal history of colon polyps; F41.9 Anxiety disorder, unspecified; I25.2 Old myocardial infarction; J43.9 Emphysema, unspecified; F31.9 Bipolar disorder, unspecified; Z79.82 Long term (current) use of aspirin; Z79.899 Other long term (current) drug therapy; F17.210 Nicotine dependence, cigarettes, uncomplicated
CPT/HCPCS: J2704; J7120